=== PATIENT | female | born 1980 | race Caucasian/White ===

== ENCOUNTER 2024-12-30 12:01 | Emergency (ER) | payer BC ==
[2024-12-30 12:21] VITALS: BP 131/80; PULSE 77
[2024-12-30] MEDS: Acetaminophen/HYDROcodone 325-5 MG Tab PO ONE (14:26)
[2024-12-30] MEDS: predniSONE 20 MG Tab PO ONE (14:26)
[2024-12-30] MEDS: Ketorolac 60 MG/2 ML SDV IM ONE (14:26)
== END 2024-12-30 14:20 | disposition home or self-care (01) ==
LOC: JD.ED 12:01
DX: M53.3 Sacrococcygeal disorders, not elsewhere classified (principal); E66.9 Obesity, unspecified; J45.909 Unspecified asthma, uncomplicated; F17.200 Nicotine dependence, unspecified, uncomplicated; Z79.899 Other long term (current) drug therapy; Z79.84 Long term (current) use of oral hypoglycemic drugs
CPT/HCPCS: 73502-26-LT; 73502-LT; 96372; 99283; 99284; A9270-GY; J1885; J7512

== ENCOUNTER 2024-12-31 07:22 | Emergency (ER) | payer BC ==
[2024-12-31] MEDS: Acetaminophen/oxyCODONE 325-5 MG Tab PO ONE (09:14)
[2024-12-31] MEDS: Ketorolac 60 MG/2 ML SDV IM ONE (09:15)
[2024-12-31 10:52] VITALS: BP 145/99; PULSE 74
== END 2024-12-31 10:05 | disposition home or self-care (01) ==
LOC: JD.ED 07:22
DX: M25.552 Pain in left hip (principal); F17.210 Nicotine dependence, cigarettes, uncomplicated; Z79.82 Long term (current) use of aspirin; Z79.899 Other long term (current) drug therapy; Z79.84 Long term (current) use of oral hypoglycemic drugs
CPT/HCPCS: 73700; 96372; 99283; A9270; J1885

== ENCOUNTER 2025-01-01 15:11 | Emergency (ER) | payer BC ==
[2025-01-01] MEDS ORDERED: Sodium Chloride 0.9% 10 ML Syringe FLUSH PRN (15:59)
[2025-01-01] MEDS: Ketorolac 30 MG/ML SDV IVPUSH ONE (16:08)
[2025-01-01 16:22] LABS: BASOPHILS ABSOLUTE AUTO 0.1 K/mm3 (0.0-0.2); BASOPHILS PERCENT AUTO 0.4 % (0.0-1.0); EOSINOPHILS PERCENT AUTO 0.3 % (0.0-6.0); HEMATOCRIT 42.8 % (37.0-47.0); IMMATURE GRAN ABSOLUTE AUTO 0.06 K/mm3 (0.00-0.05); IMMATURE GRAN PERCENT AUTO 0.5 % (0.0-0.4); LYMPHOCYTES ABSOLUTE AUTO 2.1 K/mm3 (1.0-4.8); LYMPHOCYTES PERCENT AUTO 16.4 % (24.0-44.0); MEAN CORPUSCULAR HEMOGLOBIN 29.4 pg (28.0-32.0); MEAN CORPUSCULAR HGB CONC 32.7 g/dl (32.0-36.0); MEAN CORPUSCULAR VOLUME 89.9 fl (83.0-99.0); MEAN PLATELET VOLUME 9.6 fl (9.4-12.3); MONOCYTES ABSOLUTE AUTO 0.7 K/mm3 (0.0-0.8); NEUTROPHILS PERCENT AUTO 77.4 % (41.0-71.0); PLATELET COUNT,PLT 307 K/mm3 (150-400); RED BLOOD CELL COUNT 4.76 M/mm3 (4.10-5.30); WHITE BLOOD CELL COUNT,WBC 12.89 K/mm3 (3.9-11.3)
[2025-01-01 16:45] LABS: A/G RATIO 0.9 (1-2); ALBUMIN 3.2 g/dl (3.4-5.0); ANION GAP 12.1 (5-15); BILIRUBIN TOTAL 0.2 mg/dL (0.2-1.0); BUN/CREATININE RATIO 21.3 (14-18); CALCIUM 8.5 mg/dL (8.5-10.1); CREATININE 0.8 mg/dL (0.55-1.02); EST CRCL DRUG DOSING (CG) 84.88 mL/min; POTASSIUM,K 4.1 mEq/L (3.5-5.1); PROTEIN TOTAL,TP 6.6 g/dl (6.4-8.2)
[2025-01-01] MEDS: Sodium Chloride 0.9% 10 ML Syringe FLUSH ONE (17:12)
[2025-01-01] MEDS: Iopamidol 755 Mg/ML 100 ML Bottle IVPUSH ONE (17:12)
[2025-01-01 18:16] VITALS: BP 129/84; PULSE 68
== END 2025-01-01 18:15 | disposition home or self-care (01) ==
LOC: JD.ED 15:11
DX: M54.32 Sciatica, left side (principal); M25.552 Pain in left hip; J45.909 Unspecified asthma, uncomplicated; F17.200 Nicotine dependence, unspecified, uncomplicated; Z79.84 Long term (current) use of oral hypoglycemic drugs; Z79.899 Other long term (current) drug therapy
CPT/HCPCS: 36415; 72132; 80053; 85025; 96374; 99284; J1885; Q9967

== ENCOUNTER 2025-03-29 09:47 | Emergency (ER) | payer BC ==
[2025-03-29] MEDS ORDERED: Sodium Chloride 0.9% 10 ML Syringe FLUSH PRN (10:19)
[2025-03-29] MEDS ORDERED: Ketorolac 15 MG/ML SDV IVPUSH ONE (10:22)
[2025-03-29] MEDS ORDERED: Ketorolac 30 MG/ML SDV IVPUSH ONE (10:30)
[2025-03-29] MEDS: Ketorolac 15 MG/ML SDV IVPUSH ONE (10:33)
[2025-03-29 11:01] LABS: BASOPHILS ABSOLUTE AUTO 0.1 K/mm3 (0.0-0.2); BASOPHILS PERCENT AUTO 0.7 % (0.0-1.0); EOSINOPHILS ABSOLUTE AUTO 0.2 K/mm3 (0.0-0.4); EOSINOPHILS PERCENT AUTO 1.8 % (0.0-6.0); IMMATURE GRAN ABSOLUTE AUTO 0.03 K/mm3 (0.00-0.05); IMMATURE GRAN PERCENT AUTO 0.3 % (0.0-0.4); LYMPHOCYTES ABSOLUTE AUTO 2.4 K/mm3 (1.0-4.8); LYMPHOCYTES PERCENT AUTO 23.1 % (24.0-44.0); MEAN PLATELET VOLUME 9.3 fl (9.4-12.3); MONOCYTES ABSOLUTE AUTO 0.7 K/mm3 (0.0-0.8); MONOCYTES PERCENT AUTO 6.2 % (0.0-8.0); NEUTROPHILS ABSOLUTE AUTO 7.1 K/mm3 (1.8-7.7); NEUTROPHILS PERCENT AUTO 67.9 % (41.0-71.0); NRBC ABSOLUTE 0.00 (0.00-0.02); NRBC PERCENT 0.0 % (0.0-0.2); PLATELET COUNT,PLT 291 K/mm3 (150-400); RED BLOOD CELL COUNT 4.49 M/mm3 (4.10-5.30); WHITE BLOOD CELL COUNT,WBC 10.44 K/mm3 (3.9-11.3)
[2025-03-29] MEDS: droPERidol 2.5 MG/ML SDV IV ONE (11:24)
[2025-03-29 11:26] LABS: A/G RATIO 1.0 (1-2); ALANINE AMINOTRANSFERASE,ALT 23.0 U/L (14-59); ASPARTATE AMNIOTRANSFERASE,AST 17.0 U/L (15-37); BILIRUBIN TOTAL 0.2 mg/dL (0.2-1.0); BLOOD UREA NITROGEN,BUN 17.0 mg/dL (7-18); CARBON DIOXIDE,CO2 26.0 mEq/L (21-32); CHLORIDE,CL 106.0 mEq/L (98-107); CREATININE 0.6 mg/dL (0.55-1.02); EST CRCL DRUG DOSING (CG) 104.4 mL/min; ESTIMATED GFR 114.0 mL/min (>60); GLUCOSE RANDOM 127.0 mg/dL (70-99); POTASSIUM,K 4.0 mEq/L (3.5-5.1); PROTEIN TOTAL,TP 6.4 g/dl (6.4-8.2); SODIUM,NA 139.0 mEq/L (136-145)
[2025-03-29] MEDS: diphenhydrAMINE 50 MG/ML SDV IVPUSH ONE (11:26)
[2025-03-29 13:23] VITALS: BP 118/78; PULSE 78
== END 2025-03-29 13:23 | disposition home or self-care (01) ==
LOC: JD.ED 09:47
DX: M54.50 Low back pain, unspecified (principal); E66.9 Obesity, unspecified; Z68.43 Body mass index [BMI] 50.0-59.9, adult
CPT/HCPCS: 36415; 80053; 84703; 85025; 96374; 96375; 99283; J1200; J1790; J1885; 99284